=== PATIENT | male | born 1950 | race Caucasian/White ===

== ENCOUNTER 2018-01-31 18:14 | Emergency (ER) | payer OTHER ==
[~2018-01-31] VITALS: Ht 162.6 cm; Wt 77.1 kg
[~2018-01-31 18:14] MED LIST: ALFUZOSIN HCL10 MG; CIPRO500 MG PO; GABAPENTIN300 MG; INTESTINEX680 MG PO; ZANTAC150 MG PO
== END 2018-01-31 21:01 | disposition home or self-care (01) ==
LOC: ER 18:14
DX: K59.09 Other constipation (principal); R10.31 Right lower quadrant pain